=== PATIENT | female | born 1940 | race Caucasian/White ===

== ENCOUNTER 2017-10-18 12:45 | Emergency (ER) | payer OTHER ==
[~2017-10-18] VITALS: Ht 167.6 cm; Wt 104.3 kg
[2017-10-18] MEDS ORDERED: SYNTHROID88 MCG PO (13:20)
[2017-10-18] MEDS ORDERED: TENORMIN25 MG PO (13:20)
[2017-10-18] MEDS ORDERED: LISINOPRIL5 MG PO (13:21)
[2017-10-18] MEDS ORDERED: TYLENOL WITH C1 EACH PO (13:21)
[2017-10-18] MEDS ORDERED: DICYCLOMINE HCL10 MG PO (13:21)
[2017-10-18] MEDS ORDERED: KETOROLAC TROME10 MG PO (15:04)
[2017-10-18] MEDS ORDERED: NORCO 5-325 TA1 EACH PO (15:04)
== END 2017-10-18 15:30 | disposition home or self-care (01) ==
LOC: ED 12:45
DX: M71.22 Synovial cyst of popliteal space [Baker], left knee (principal); I10 Essential (primary) hypertension; E03.9 Hypothyroidism, unspecified; Z88.7 Allergy status to serum and vaccine; Z88.5 Allergy status to narcotic agent; Z79.899 Other long term (current) drug therapy
CPT/HCPCS: 73560; 93971; 96372; 99283; J1885